=== PATIENT | female | born 1955 | race Caucasian/White ===

== ENCOUNTER → 2024-06-23 16:36 | Outpatient (REF) | payer MEDICARE, OTHER, SELFPAY | LOC: RAD 16:36 | PROVIDERS: ATTENDING PHYSICIAN Nurse Practitioner; FAMILY PHYSICIAN Internal Medicine | DX: R10.13 Epigastric pain (principal); N20.0 Calculus of kidney; R10.30 Lower abdominal pain, unspecified | CPT/HCPCS: 74177; Q9967 ==